=== PATIENT | female | born 1975 | race Caucasian/White ===

== ENCOUNTER → 2016-09-25 | Outpatient (CLI) | payer OTHER | LOC: US 09-18 07:45 | DX: R10.9 Unspecified abdominal pain (principal); B19.20 Unspecified viral hepatitis C without hepatic coma; R16.1 Splenomegaly, not elsewhere classified | CPT/HCPCS: 76705 ==

== ENCOUNTER 2021-08-28 21:25 | Emergency (ER) | payer OTHER ==
[2021-08-29 02:02] LABS: HEMOGLOBIN 13.7 gm/dl (12.3-15.3); RED BLOOD COUNT 4.37 M/UL (4.00-5.10); WHITE BLOOD COUNT 5.6 K/UL (4.5-11.0)
[2021-08-29 02:19] LABS: BUN/CREATININE RATIO 8 (0-10)
== END 2021-08-29 03:38 | disposition home or self-care (01) ==
LOC: ER1 21:25
PROVIDERS: Family Medicine
DX: R21 Rash and other nonspecific skin eruption (principal); D69.6 Thrombocytopenia, unspecified; Z88.2 Allergy status to sulfonamides; F17.200 Nicotine dependence, unspecified, uncomplicated; Z79.82 Long term (current) use of aspirin
CPT/HCPCS: 80053; 85025; 85652; 86140; 99283

== ENCOUNTER 2022-01-30 23:05 | Emergency (ER) | payer OTHER ==
[2022-01-31] MEDS ORDERED: PROVENTIL HFA6.7 GM INH (01:37)
[2022-01-31] MEDS ORDERED: MONODOX100 MG PO (01:37)
== END 2022-01-31 01:48 | disposition home or self-care (01) ==
LOC: ER1 23:05
DX: U07.1 COVID-19 (principal); F17.210 Nicotine dependence, cigarettes, uncomplicated; Z88.8 Allergy status to other drugs, medicaments and biological substances
CPT/HCPCS: 0240U; 71045; 99283

== ENCOUNTER 2022-01-31 19:46 | Emergency (ER) | payer OTHER ==
[~2022-01-31 19:46] MED LIST: MONODOX100 MG PO; PROVENTIL HFA6.7 GM INH
== END 2022-01-31 22:50 | disposition home or self-care (01) ==
LOC: ER1 19:46
DX: U07.1 COVID-19 (principal); F17.210 Nicotine dependence, cigarettes, uncomplicated; R40.2410 Glasgow coma scale score 13-15, unspecified time
CPT/HCPCS: 99283